=== PATIENT | male | born 1975 | race Caucasian/White ===

== ENCOUNTER 2024-07-20 06:32 | Day surgery (SDC) | payer OTHER, SELFPAY ==
[2024-07-20 07:25] LABS: Glucose - Point of Care 183 mg/dl (70-99)
== END 2024-07-20 08:37 | disposition home or self-care (01) ==
LOC: GI 06:32
PROVIDERS: ATTENDING PHYSICIAN Internal Medicine Gastroenterology
DX: Z12.11 Encounter for screening for malignant neoplasm of colon (principal); Z80.0 Family history of malignant neoplasm of digestive organs; K64.8 Other hemorrhoids
CPT/HCPCS: G0121; 82962